=== PATIENT | female | born 1955 | race Caucasian/White ===

== ENCOUNTER 2021-01-22 17:14 | Emergency (ER) | payer MEDICARE, OTHER ==
[2021-01-22] MEDS ORDERED: Atropine Sulfate 1 mg/10 ml Syringe ONE ×2 (17:31→17:59)
[2021-01-22 18:15] LABS: #Lymphocytes 0.4 thou/uL (1.20-3.40); #Monocytes 0.3 thou/uL (0.11-0.59); #Neutrophils 3.2 thou/uL (1.40-6.50); %Basophils 0.6 % (0.0-1.0); %Eosinophils 1.2 % (0.0-10.0); %Lymphocytes 10.4 % (21.0-51.0); %Monocytes 7.6 % (0.0-10.0); %Neutrophils 80.2 % (42.0-75.0); Hemoglobin 9.7 g/dL (12.0-16.0); Mean Corpuscular HGB CONC 29.6 g/dL (32.0-36.0); Mean Corpuscular Hemoglobin 26.2 pg (27.0-31.0); Mean Corpuscular Volume 88.5 fL (78.0-98.0); Mean Platelet Volume 10.5 fL (7.4-10.4); Platelet Count 165 thou/uL (130-400); RBC Distribution Width 20.8 % (11.5-14.5); Red Blood Cell (RBC) Count 3.69 mill/uL (4.20-5.40)
[2021-01-22 18:16] LABS: Giant Platelets SLIGHT; Large Platelets SLIGHT; MDiff Complete? YES; Nucleated RBC 0 % (0); Platelet Morphology Comment Appears Adequate
[2021-01-22 18:20] LABS: ALT (SGPT) 33 U/L (8-55); AST (SGOT) 25 U/L (5-34); Alkaline Phosphatase 72 U/L (40-110); Anion Gap 14 mmol/L (10-20); BUN (Urea Nitrogen) 81 mg/dL (9.8-20.1); Bilirubin, Total 0.4 mg/dL (0.2-1.2); Calc. Creatinine Clearance 0 mL/min (70-130); Calcium 9.4 mg/dL (7.8-10.44); Carbon Dioxide 28 mmol/L (23-31); Chloride 105 mmol/L (98-107); Globulin 3.1 g/dL (2.4-3.5); Glucose 99 mg/dL (80-115); Potassium 5.8 mmol/L (3.5-5.1); Protein, Total 6.1 g/dL (5.8-8.1); Sodium 141 mmol/L (136-145)
[2021-01-22] MEDS ORDERED: Insulin Regular 300 UNITS/3 ML VIAL ONE (19:06)
[2021-01-22] MEDS ORDERED: Calcium Gluc 4.6 MEQ/10 ML (100 MG/ML) ONE (19:06)
[2021-01-22] MEDS ORDERED: Dextrose 50% Abboject 50 ML SYRINGE ONE (19:06)
== END 2021-01-22 20:50 | disposition short-term general hospital (02) ==
LOC: MADERS 17:14
DX: R00.1 Bradycardia, unspecified (principal); D64.9 Anemia, unspecified; E87.5 Hyperkalemia; N28.9 Disorder of kidney and ureter, unspecified; R60.0 Localized edema; E11.9 Type 2 diabetes mellitus without complications; E78.5 Hyperlipidemia, unspecified; I10 Essential (primary) hypertension
CPT/HCPCS: 71045; 80053; 83880; 84484; 85025; 93005; J2001; 36415; 96374; 96375; 96376; J0461; J1815

== ENCOUNTER 2021-02-17 10:40 | Outpatient (CLI) | payer MEDICARE ==
[2021-02-17 14:41] LABS: Cardiac Risk 2.2 (Less than 4.5)
[2021-02-17 21:47] LABS: Hemoglobin A1c 6.7 % (4.0-6.0)
== END 2021-02-17 10:41 | disposition home or self-care (01) ==
LOC: MADLAB 10:40
DX: E11.22 Type 2 diabetes mellitus with diabetic chronic kidney disease (principal); N18.9 Chronic kidney disease, unspecified; I50.9 Heart failure, unspecified; E03.9 Hypothyroidism, unspecified; E78.5 Hyperlipidemia, unspecified
CPT/HCPCS: 36415; 80061; 83036; 84443